=== PATIENT | male | born 1955 | race Caucasian/White ===

== ENCOUNTER → 2017-10-15 | Outpatient (REF) ==
[2017-10-15 18:20] LABS: PSA-TOTAL < 0.10 ng/mL (0-4)
[2017-10-15 18:35] LABS: THYROID STIMULATING HORMONE 0.397 uIU/mL (0.465-4.680)
== END ==
LOC: ZLAB.WCH 17:33
PROVIDERS: Internal Medicine
DX: Z01.89 Encounter for other specified special examinations (principal)
CPT/HCPCS: G0103

== ENCOUNTER → 2018-12-15 | Outpatient (REF) ==
[2018-12-15 20:11] LABS: THYROID STIMULATING HORMONE 0.792 uIU/mL (0.465-4.680)
== END ==
LOC: ZLAB.WCH 19:15
PROVIDERS: Internal Medicine
DX: Z01.89 Encounter for other specified special examinations (principal)
CPT/HCPCS: G0103